=== PATIENT | female | born 1965 | race Caucasian/White ===

== ENCOUNTER 2018-03-06 14:10 | Emergency (ER) | payer MEDICAID ==
[~2018-03-06] VITALS: Ht 165.1 cm; Wt 50.0 kg
[~2018-03-06 14:10] MED LIST: LORA0.5T PO; METH500T PO; NAPR-232 PO
[2018-03-06 14:11] VITALS: BP 120/98
== END 2018-03-06 16:40 | disposition left against medical advice (07) ==
LOC: ER 14:10
DX: F41.9 Anxiety disorder, unspecified (principal); Z53.21 Procedure and treatment not carried out due to patient leaving prior to being seen by health care provider

== ENCOUNTER 2019-06-05 00:58 | Emergency (ER) | payer MEDICAID ==
[~2019-06-05] VITALS: Ht 165.1 cm; Wt 50.5 kg
[2019-06-05 01:01] VITALS: BP 134/92
[2019-06-05] MEDS ORDERED: ondansetron 4mg rapidly disintigrating tab PO ONE (02:20)
[2019-06-05] MEDS ORDERED: ibuprofen tablet 400 MG TABLET PO ONE (02:20)
[2019-06-05] MEDS ORDERED: acetaminophen 325mg tablet PO ONE (02:20)
--- NOTE | 2019-06-05 03:16 | NUR ---
Patient is awake and well oriented. She is resting mid fowlers in bed. Her chief complaint is pain to her popliteal region, left leg. The pain began 2345 hours yesterday. Patient states lots of physical exertion recently, cramps to both leg. Tenderness is present to the poplliteal region with palpitation. Patiet states her intake has been poor.
== END 2019-06-05 05:22 | disposition home or self-care (01) ==
LOC: ER 00:59
DX: S80.12XA Contusion of left lower leg, initial encounter (principal); G89.29 Other chronic pain; F41.9 Anxiety disorder, unspecified; Z88.5 Allergy status to narcotic agent; Z88.6 Allergy status to analgesic agent; Z88.1 Allergy status to other antibiotic agents; Z88.8 Allergy status to other drugs, medicaments and biological substances; Z79.899 Other long term (current) drug therapy; X58.XXXA Exposure to other specified factors, initial encounter; Y93.89 Activity, other specified; Y92.092 Bedroom in other non-institutional residence as the place of occurrence of the external cause; Y99.8 Other external cause status
CPT/HCPCS: 93971; 99284; J2405

== ENCOUNTER 2019-08-17 18:16 | Emergency (ER) | payer MEDICAID ==
[~2019-08-17] VITALS: Ht 165.1 cm; Wt 46.8 kg
[~2019-08-17 18:16] MED LIST changes: -METH500T PO; -NAPR-232 PO
--- NOTE | 2019-08-17 20:31 | NUR ---
Dr. Soto is at the bedside with the patient at this time.
[2019-08-17] MEDS ORDERED: LORazepam 1 MG tablet PO ONE (20:50)
[2019-08-17] MEDS ORDERED: LORazepam 0.5 MG tablet PO ONE (20:55)
[2019-08-17 21:08] LABS: CLARITY,URINE CLEAR (Clear); COLOR,URINE STRAW (Yellow); GLUCOSE, URINE NEGATIVE (Neg); KETONES,URINE NEGATIVE (Neg); LEUKOCYTE ESTERASE ,URINE NEGATIVE (Neg); NITRITES, URINE NEGATIVE (Neg); OCCULT BLOOD,URINE NEGATIVE (Neg); PROTEIN,URINE NEGATIVE (Neg); UROBILINOGEN,URINE 0.2 E.U/dL (0.2-1.0)
[2019-08-17 21:09] LABS: UA COLLECTION TYPE CLN CATCH MIDSTREAM
[2019-08-17] MEDS ORDERED: iohexol 300mg/ml 100ml inj. ONE (21:24)
--- NOTE | 2019-08-17 21:24 | NUR ---
certified master safe technician at bedside discussing contrast.
[2019-08-17 21:25] LABS: BASOPHILS % (AUTO) 0.4 % (0-1); EOSINOPHILS % (AUTO) 0.4 % (0-6); HEMATOCRIT 40.3 % (35.0-45.0); LYMPHOCYTES # (AUTO) 1.3 X10'3 (1.1-4.8); LYMPHOCYTES % (AUTO) 23.7 % (21-51); MEAN CORPUSCULAR HEMOGLOBIN 33.8 PG (27.0-31.0); MEAN CORPUSCULAR HGB CONC 34.8 g/dL (33.0-36.5); MEAN CORPUSCULAR VOLUME 97.3 FL (78-98); MEAN PLATELET VOLUME 8.3 FL (7.4-10.4); MONOCYTES # (AUTO) 0.3 X10'3 (0-0.9); MONOCYTES % (AUTO) 4.5 % (2-12); PLATELET COUNT 266 X10'3 (140-440); RED BLOOD COUNT 4.14 X10'6 (4.20-5.60); RED CELL DISTRIBUTION WIDTH 12.8 % (11.5-14.5); WHITE BLOOD COUNT 5.6 X10'3 (4.5-11.0)
[2019-08-17 21:28] LABS: PARTIAL THROMBOPLASTIN TIME 27 SECONDS (22-32)
[2019-08-17 21:30] LABS: ALANINE AMINOTRANSFERASE 23 U/L (12-78); ALBUMIN 4.4 G/DL (3.4-5.0); ALBUMIN/GLOBULIN RATIO 1.4 (1.1-1.5); ALKALINE PHOSPHATASE 84 IU/L (46-116); ANION GAP 10 (8-16); ASPARTATE AMINO TRANSFERASE 14 U/L (10-37); BILIRUBIN,TOTAL 0.2 MG/DL (0.1-1.0); BLOOD UREA NITROGEN 10 MG/DL (7-18); BUN/CREATININE RATIO 11.9 (6.6-38.0); CALCIUM 9.9 MG/DL (8.5-10.1); CHLORIDE 108 MMOL/L (99-107); CREATININE 0.84 MG/DL (0.40-0.90); GLUCOSE 95 MG/DL (70-104); POTASSIUM 4.4 MMOL/L (3.5-5.1); SODIUM 145 MMOL/L (135-145); TOTAL CARBON DIOXIDE 27.3 MMOL/L (24-32); TOTAL PROTEIN 7.6 G/DL (6.4-8.2); eGFR 71 ML/MIN
[2019-08-17 21:32] LABS: C-REACTIVE PROTEIN < 0.05 MG/DL (0.0-0.5)
--- NOTE | 2019-08-17 22:01 | NUR ---
BACK FROM CT
--- NOTE | 2019-08-17 22:02 | NUR ---
ANANYA SANTOS AT BEDSIDE TO UPDATE POC
[2019-08-17 22:26] VITALS: BP 126/81
== END 2019-08-17 23:45 | disposition home or self-care (01) ==
LOC: ER 18:17
DX: R10.32 Left lower quadrant pain (principal); M79.652 Pain in left thigh; F41.9 Anxiety disorder, unspecified; R10.2 Pelvic and perineal pain; R23.3 Spontaneous ecchymoses; G89.29 Other chronic pain; Z88.5 Allergy status to narcotic agent; Z88.6 Allergy status to analgesic agent; Z88.1 Allergy status to other antibiotic agents; Z79.899 Other long term (current) drug therapy
CPT/HCPCS: 36415; 74177; 80053; 81003; 85025; 85610; 85730; 86140; 93971; 99284; Q9967